=== PATIENT | male | born 1970 | race African-American/Black ===

== ENCOUNTER 2024-08-20 02:10 | Emergency (ER) | payer MEDICAID, SELFPAY ==
--- NOTE | 2024-08-20 02:16 | ED_ITS ---
HPI - CPR General Chief Complaint: Cardiac Arrest/CPR Stated Complaint: CARDIAC ARREST Time Seen by Provider: 08/20/24 02:14 Source: EMS Mode of arrival: EMS Limitations: other (cardiac arrest) History of Present Illness ED Provider: Dr. Vines HPI narrative: Patient is a 54yo male unknown medical problems who presents in cardiac arrest. Family called for unresponsive, police got on the scene and gave narcan, they had a weak pulse. Patient then had no pulse and CPR was started. Medic showed up, IGel, IO was placed, patient received epi multiple times, patient received amiodarone for vfib and was cardioverted 4 times. When EMS arrived patient was in asystole. Onset (ago): minute(s) Bystander CPR performed: Yes AED applied by bystander/welder first class: Yes Shock advised: Yes Number of shocks delivered: >3 Related Data Allergies Allergy/AdvReac Type Severity Reaction Status Date / Time No Known Allergies Allergy Verified 08/20/24 02:34 [No Known Allergies*] Review of Systems Review of Systems: Yes all other systems are reviewed and are negative Neurologic: Reports Sensory deficit (Neuro) [facility] Social History Social History Advance Directives: No Advance Directives Information Provided: No Do you have a plan to hurt others: No Plan Physical Exam Vital Signs: Vital Signs: BMI result Body Mass Index 31.4 Const: Other: male with IGEl in airway, johnny device giving compressions Nutritional Appearance: average body habitus Limitations: other limitations (unresponsive) HEENT: Head: Yes normal to inspection Ears: external ears normal General nose exam: Normal external nose present Mouth: Normal oral and palatal mucosa present and oropharynx normal Throat: Yes posterior oropharynx normal Eyes: Other: fixed and dilated Neck: Other: supple Neck: Yes normal visual inspection Chest: Other: undergoing compressions Resp: Other: Being bagged Cardio: Other: no HS GI: Inspection: Yes normal to inspection Palpation (GI): Soft to palpation, nontender and No hepatosplenomegaly present Auscultation: normal bowel sounds : General: Yes no CVA tenderness Back/Spine/Pelvis: Back: no CVA tenderness Skin: Other: pallor Neuro: Other: no movement Sensory Exam: Sensory deficit (Neuro) Extrem: General: Yes normal to inspection Psych: Other: unresponsive Course Reevaluation(s) Reevaluation #1: patient received one round of epi, asystole, bedside echo performed by me showed no heart movement. Code called at 2:14am Time: 02:26 Reevaluation #2: Discussed with his brother, patient had a history of crack use, was admitted to [facility] for 5 months for MRSA infection. His girlfriend called the ambulance. Time: 02:59 Reevaluation #3: I spent 40 minutes of critical care, with interventions, assessments, speaking to patient, consultants, and family. Time: 03:00 Medical Decision Making Differential Diagnosis Differential Diagnoses: The differential diagnosis associated with the presentation includes (cardiac arrest, overdose, UT) Admission/Observation Consideration of admission/observation: Escalation of care including admission/observation considered (upon arrival admission was considered) Independent Interpretation I performed an independent interpretation of an: Rhythm Strip (asystole) Independent Historian Clinical information obtained from an independent historian. History obtained from or confirmed by: EMS Social Determinants Patient?s care significantly limited by Social Determinants of Health including: Low income and Alcoholism and drug addiction in family Discharge Plan Discharge Clinical Impression: Cardiac arrest Patient Disposition: on Arrival Print Language: Slovenian
[2024-08-20 02:32] VITALS: BMI 31.4
--- NOTE | 2024-08-20 03:06 | PC.NURSE ---
Pt brother arrived to ED. 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 Pt sig other according to charting also called, this RN stated she would need to come to the hospital for further information.
--- NOTE | 2024-08-20 04:44 | PC.NURSE ---
ME Accepted case, ref # [id number]
== END 2024-08-20 05:35 | disposition expired ==
PROVIDERS: Emergency Provider Emergency Medicine
DX: I46.9 Cardiac arrest, cause unspecified (principal)
CPT/HCPCS: 99283; 99285; J0171